=== PATIENT | female | born 1990 | race Caucasian/White ===

== ENCOUNTER 2017-03-10 17:37 | Emergency (ER) | payer BC, MEDICAID ==
--- NOTE | 2017-03-10 18:02 | Emergency Department Record ---
History of Present Illness - General Chief Complaint: Back Pain/Injury Stated Complaint: BACK PAIN Time Seen by Provider: 03/10/17 18:00 Source: Patient Mode of Arrival: Ambulatory Limitations: No limitations - History of Present Illness Initial Comments: The patient is here due to a one week hx of low back pain. She states she was lifting her 11 months old a week ago and noticed pain in her low back. Now Motrin is not helping and the pain is much worse with any movement or lifting. She denies any leg weakness or numbness, but states she does feel intermittent pain radiating to her legs at times. She also denies any bladder or bowel issues. Due to the pain not improving she presented to the ER for treatment. The patient denies any new medical issues, trauma or injury. MD Complaint: Back pain Onset/Timin -: Week(s) Similar Symptoms Previously: No Place: Home Radiation: Left leg, Right leg Severity: Moderate Severity scale (1-10): 7 Quality: Burning Consistency: Constant Improves With: None Worsens With: None Context: While lifting Associated Symptoms: Denies other symptoms Treatments Prior to Arrival: NSAIDS Treatment Prior to Arrival Comment:: Ibuprofen did not help - Related Data Previous Rx's Medication Instructions Recorded Cyclobenzaprine HCl [Flexeril] 10 mg PO TID PRN #20 tablet 03/10/17 Naproxen [Naprosyn] 500 mg PO BID #14 tablet. 03/10/17 Allergies Allergy/AdvReac Type Severity Reaction Status Date / Time No Known Drug Allergies Allergy Verified 03/10/17 17:50 Travel Screening - Travel/Exposure Within Last 30 Days Have you traveled within the last 30 days?: No - Travel/Exposure Within Last Year Have you traveled outside the [place] in the last year?: No - Additonal Travel Details Have you been exposed to anyone with a communicable illness?: No - Travel Symptoms Symptom Screening: None Review of Systems Constitutional: Denies: Chills, Fever Eyes: Denies: Eye discharge ENT: Denies: Congestion Respiratory: Denies: Cough, Dyspnea Past Medical History - SOCIAL HISTORY Smoking Status: Current every day smoker Alcohol Use: Occasional Drug Use: None - RESPIRATORY Hx Respiratory Disorders: No - CARDIOVASCULAR Hx Cardio Disorders: No - NEURO Hx Neuro Disorders: No - GI Hx GI Disorders: No - Hx Genitourinary Disorders: No - ENDOCRINE Hx Endocrine Disorders: No - MUSCULOSKELETAL Hx Musculoskeletal Disorders: No - PSYCH Hx Psych Problems: No - HEMATOLOGY/ONCOLOGY Hx Hematology/Oncology Disorders: No Family Medical History Any Significant Family History?: No Physical Exam - General General Appearance: Alert, Oriented x3, Cooperative, No acute distress - Head Head exam: Atraumatic, Normocephalic, Normal inspection - Eye Eye exam: Normal appearance, PERRL - Neck Neck exam: Normal inspection, Full ROM. negative: Tenderness - Respiratory Respiratory exam: Normal lung sounds bilaterally. negative: Respiratory distress - Cardiovascular Cardiovascular Exam: Regular rate, Normal rhythm, Normal heart sounds - GI/Abdominal GI/Abdominal exam: Soft, Normal bowel sounds. negative: Tenderness - Extremities Extremities exam: Normal inspection, Other (Neg SLR bilaterally.) - Back Back exam: Reports: Normal inspection, Paraspinal tenderness (mild to the bilateral lumbar area. ). Denies: Muscle spasm, Vertebral tenderness - Neurological Neurological exam: Alert, Normal gait, Oriented X3, Reflexes normal. negative: Abnormal gait, Altered, Motor sensory deficit Course Vital Signs 03/10/17 17:51 Temperature 98.3 F Pulse Rate 107 H Respiratory 20 Rate Blood Pressure 125/80 Pulse Ox 97 - Reevaluation(s) Reevaluation #1: The patient is doing better at this time. Her pain is improved and she is up walking with NO difficulty or discomfort. I explained to her the need for F/U with her PCP next week. She is to return to the ER for any worsening symptoms. 03/10/17 18:41 Reevaluation #2: The patient is doing much better at this time. Her burning in her back and legs is gone and she is ready for home. 03/10/17 18:50 Medical Decision Making - Data Complexity MDM Data: Labs Ordered and/or Reviewed (Hcg: Neg.) Disposition Disposition: Discharge Clinical Impression: Lumbar strain Qualifiers: Encounter type: initial encounter Qualified Code(s): S39.012A - Strain of muscle, fascia and tendon of lower back, initial encounter Disposition: Home, Self-Care Condition: (2) Stable Instructions: Low Back Strain (ED) Additional Instructions: Please rest with no heavy lifting at home until improved. Please use the Naprosyn and Flexeril as directed. Follow up with your PCP next week for recheck. Return to the ER for any worsening pain, leg weakness, numbness, or any bowel or bladder issues. Prescriptions: Cyclobenzaprine HCl [Flexeril] 10 mg PO TID PRN #20 tablet PRN Reason: Pain Naproxen [Naprosyn] 500 mg PO BID #14 tablet.dr Forms: Patient Portal Access Time of Disposition: 18:44 Quality - Quality Measures Quality Measures: N/A - Blood Pressure Screening View Details: Yes Does Patient Have Any of the Following: No Blood Pressure Classification: Pre-Hypertensive BP Reading Systolic Measurement: 125 Diastolic Measurement: 80 Screening for High Blood Pressure: < Pre-Hypertensive BP, F/U Documented > [ G8950] Pre-Hypertensive Follow-up Interventions: Referral to alternative/primary care provider.
[2017-03-10] MEDS ORDERED: ORPHENADRINE CITRATE 60MG/2ML VIAL IM ONE (18:21)
[2017-03-10] MEDS ORDERED: KETOROLAC 30 MG/ML VIAL IM ONE (18:21)
== END 2017-03-10 19:10 | disposition home or self-care (01) ==
LOC: ER 17:37
DX: S39.012A Strain of muscle, fascia and tendon of lower back, initial encounter (principal); X50.0XXA Overexertion from strenuous movement or load, initial encounter; Y93.F2 Activity, caregiving, lifting; Y92.009 Unspecified place in unspecified non-institutional (private) residence as the place of occurrence of the external cause
CPT/HCPCS: 99283 ×2; 96372; 81025; J1885; J2360

== ENCOUNTER 2017-03-18 13:38 | Emergency (ER) | payer BC ==
--- NOTE | 2017-03-18 14:02 | Emergency Department Record ---
History of Present Illness - General Chief Complaint: Back Pain/Injury Stated Complaint: BACK PAIN Time Seen by Provider: 03/18/17 13:53 Source: Patient Mode of Arrival: Ambulatory Limitations: No limitations - History of Present Illness Initial Comments: The patient is here due to having low back pain for at least a month. It got worse last week when she lifted up her child. The pain is a sharp aching pain that intermittently radiates to her groin area bilaterally. She denies any leg numbness, weakness, fever, chills, dysuria, or any bowel or bladder issues. Any walking, bending or lifting dramatically increases the pain. The patient was here last week for it and was placed on Naprosyn and Flexeril and now is not better. She has not been able to see her PCP for the issue. MD Complaint: Back pain Onset/Timin -: Month(s) Improves With: None Worsens With: None Context: Unknown Associated Symptoms: Other - Related Data Previous Rx's Medication Instructions Recorded Cyclobenzaprine HCl [Flexeril] 10 mg PO TID PRN #20 tablet 03/10/17 Naproxen [Naprosyn] 500 mg PO BID #14 tablet. 03/10/17 Lidocaine Patch [Lidoderm] 1 ea TOP DAILY #7 patch 03/18/17 Methylprednisolone [Medrol Dose 4 mg PO DAILY #1 tab.ds.pk 03/18/17 Pack] Allergies Allergy/AdvReac Type Severity Reaction Status Date / Time No Known Drug Allergies Allergy Verified 03/18/17 13:53 Travel Screening - Travel/Exposure Within Last 30 Days Have you traveled within the last 30 days?: No - Travel/Exposure Within Last Year Have you traveled outside the [place] in the last year?: No - Additonal Travel Details Have you been exposed to anyone with a communicable illness?: No - Travel Symptoms Symptom Screening: None Review of Systems Constitutional: Denies: Chills, Fever Eyes: Denies: Eye discharge ENT: Denies: Congestion Respiratory: Denies: Cough, Dyspnea, Hemoptysis Past Medical History - SOCIAL HISTORY Smoking Status: Current every day smoker Alcohol Use: None Drug Use: None - RESPIRATORY Hx Respiratory Disorders: No - CARDIOVASCULAR Hx Cardio Disorders: No - NEURO Hx Neuro Disorders: No - GI Hx GI Disorders: No - Hx Genitourinary Disorders: No - ENDOCRINE Hx Endocrine Disorders: No - MUSCULOSKELETAL Hx Musculoskeletal Disorders: No - PSYCH Hx Psych Problems: No - HEMATOLOGY/ONCOLOGY Hx Hematology/Oncology Disorders: No Family Medical History Any Significant Family History?: No Physical Exam - General General Appearance: Alert, Oriented x3, Cooperative, No acute distress - Head Head exam: Atraumatic, Normocephalic, Normal inspection - Eye Eye exam: Normal appearance, PERRL - Neck Neck exam: Normal inspection, Full ROM. negative: Tenderness - Respiratory Respiratory exam: Normal lung sounds bilaterally. negative: Respiratory distress - Cardiovascular Cardiovascular Exam: Regular rate, Normal rhythm, Normal heart sounds - GI/Abdominal GI/Abdominal exam: Soft, Normal bowel sounds. negative: Tenderness - Extremities Extremities exam: Normal inspection, Full ROM, Normal capillary refill, Other ( Neg SLR bilaterally.). negative: Tenderness - Back Back exam: Reports: Normal inspection, Paraspinal tenderness, Vertebral tenderness (mild diffusely over the lumbar spinal and paraspinal areas.). Denies: CVA tenderness (R), CVA tenderness (L) - Neurological Neurological exam: Alert, Normal gait (The patient is able to ambulate with NO signs of any pain or discomfort.), Oriented X3, Reflexes normal (The patella and achilles reflexes are 2+ and equal bilaterally.). negative: Abnormal gait, Altered, Motor sensory deficit Course Vital Signs 03/18/17 13:47 Temperature 97.8 F Pulse Rate 86 Respiratory 16 Rate Blood Pressure 113/71 Pulse Ox 100 - Reevaluation(s) Reevaluation #1: The patient is doing well at this time. She is sitting on the bed texting on the phone and appears very comfortable. I did discuss the normal lab work and urine results with her and have ordered the xrays. 03/18/17 14:47 Reevaluation #2: Again the patient is resting comfortably texting on her phone. I did discuss with her the normal lab tests, UA and xrays. She is to see her PCP next week for recheck. 03/18/17 15:38 Medical Decision Making - Data Complexity MDM Data: Labs Ordered and/or Reviewed, X-Ray Ordered and/or Reviewed - Lab Data Result diagrams: 03/18/17 14:22 03/18/17 14:22 - Radiology Data Radiology results: Report reviewed (Lumbar spine: Neg for any acute changes.) Disposition Disposition: Discharge Clinical Impression: Lumbar strain Qualifiers: Encounter type: subsequent encounter Qualified Code(s): S39.012D - Strain of muscle, fascia and tendon of lower back, subsequent encounter Disposition: Home, Self-Care Condition: (2) Stable Instructions: Low Back Strain (ED) Additional Instructions: Take the Medrol Dose pack and Lidoderm for pain. Please see your PCP next week for recheck. Return to the ER for any worsening symptoms, fever, leg numbness, weakness, or any bowel or bladder incontinence or inability to go. Please take an OTC laxative for constipation. Prescriptions: Lidocaine Patch [Lidoderm] 1 ea TOP DAILY #7 patch Methylprednisolone [Medrol Dose Pack] 4 mg PO DAILY #1 tab.ds.pk Forms: Patient Portal Access Time of Disposition: 15:41 Quality - Quality Measures Quality Measures: N/A - Blood Pressure Screening View Details: Yes Does Patient Have Any of the Following: No Blood Pressure Classification: Normal BP Reading Systolic Measurement: 113 Diastolic Measurement: 71 Screening for High Blood Pressure: < Normal BP, F/U Not Required > [G8783]
[2017-03-18] MEDS ORDERED: ORPHENADRINE CITRATE 60MG/2ML VIAL IM ONE (14:03)
[2017-03-18 14:25] LABS: BASO % 0.4 % (0-6); EOS % 2.4 % (0-6); GRAN % 63.2 % (47-80); HEMATOCRIT 44.8 % (35.0-47.0); HEMOGLOBIN 15.2 gm/dl (11.6-16.0); LYMPH % 24.5 % (16-45); MEAN CELL VOLUME 90.3 fl (81-97); MEAN CORPUSCULAR HEMOGLOBIN 30.6 pg (27-33); MEAN CORPUSCULAR HGB CONC 33.9 g/dl (32-36); MEAN PLATELET VOLUME 9.9 fl (7.4-10.4); MONO % 9.5 % (0-9); PLATELET COUNT 313 K/uL (130-400); RED BLOOD COUNT 4.96 M/uL (3.80-5.40); RED CELL DISTRIBUTION WIDTH 13.4 % (11.5-14.5)
[2017-03-18 14:28] LABS: URINE APPEARANCE CLEAR; URINE BILIRUBIN NEGATIVE (NEGATIVE); URINE BLOOD NEGATIVE (NEGATIVE); URINE COLOR YELLOW; URINE GLUCOSE (UA) NEGATIVE (NEGATIVE); URINE KETONE NEGATIVE (NEGATIVE); URINE LEUKOCYTE ESTERASE NEGATIVE (NEGATIVE); URINE NITRITE NEGATIVE (NEGATIVE); URINE PROTEIN NEGATIVE (NEGATIVE); URINE UROBILINOGEN 0.2 E.U./dL (0.20 - 1.00)
[2017-03-18 14:36] LABS: BLOOD UREA NITROGEN 14 mg/dL (6-20); CREATININE 0.5 mg/dL (0.5-0.9); EST GLOMERULAR FILTRATION RATE > 60 mL/min
[2017-03-18 14:37] LABS: TOTAL PROTEIN 8.2 g/dL (6.6-8.7)
[2017-03-18 14:42] LABS: ALB/GLOB RATIO 1.3 (1.1-1.8); ALBUMIN 4.7 g/dL (4.0-5.0); ALKALINE PHOSPHATASE 85 U/L (35-104); ALT/SGPT 27 U/L (<33); AST/SGOT 19 U/L (10.0-35.0)
[2017-03-18 14:43] LABS: GLUCOSE,RANDOM 86 mg/dL (74-109); HCG,QUALITATIVE URINE NEGATIVE (NEGATIVE)
--- NOTE | 2017-03-19 22:45 | RADIOLOGY REPORT ---
EXAM: LUMBAR SPINE W/OBLIQUES HISTORY: INCREASED BACK PAIN FOR THE PAST MONTH. TECHNIQUE: Five views lumbar spine. COMPARISON: None. FINDINGS: The lumbar intervertebral disc spaces are maintained. No fracture or subluxation identified. No appreciable arthritic change seen. IMPRESSION: THE LUMBAR SPINE APPEARS NEGATIVE. JOB NUMBER: [id number] MTDD
== END 2017-03-18 16:11 | disposition home or self-care (01) ==
LOC: ER 13:38
DX: S39.012A Strain of muscle, fascia and tendon of lower back, initial encounter (principal); X50.0XXA Overexertion from strenuous movement or load, initial encounter
CPT/HCPCS: 72110; 80053; 81003; 81025; 85025; 99283; 99284; J2360

== ENCOUNTER 2017-05-17 20:16 | Emergency (ER) | payer BC, MEDICAID ==
--- NOTE | 2017-05-17 20:31 | Emergency Department Record ---
History of Present Illness - General Chief Complaint: Cough Stated Complaint: COUGH,LOW GRADE TEMP,HASMUKH Time Seen by Provider: 05/17/17 20:26 Source: Patient, Family Mode of Arrival: Ambulatory Limitations: No limitations - History of Present Illness Initial Comments: 26 yo female presents with cough, congestion, phlegm productive, mild sore throat. The onset was yesterday. She does smoke 1-2 cigarettes per day. No nausea, vomiting or diarrhea. No rash. She did not have a flu shot this year. Her child was sick last week with URI/Pneumonia symptoms. No underlying history of lung disease. MD Complaint: Cough, Fever, Nasal congestion, Rhinorrhea, Sore throat Onset/Timin -: Days(s) (2) Quality: Aching Consistency: Constant Improves With: Nothing Worsens With: Nothing Associated Symptoms: Cough, Fever, Nasal congestion, Rhinorrhea - Related Data Previous Rx's Medication Instructions Recorded Azithromycin [Zithromax] 250 mg PO DAILY #4 tab 05/17/17 Allergies Allergy/AdvReac Type Severity Reaction Status Date / Time No Known Drug Allergies Allergy Verified 03/18/17 13:53 Travel Screening - Travel/Exposure Within Last 30 Days Have you traveled within the last 30 days?: No - Travel Symptoms Symptom Screening: None Review of Systems Constitutional: Reports: Chills, Fever, Malaise Eyes: Denies: Eye discharge, Eye pain, Photophobia, Vision change ENT: Reports: Congestion, Throat pain Respiratory: Reports: Cough. Denies: Dyspnea, Hemoptysis, Stridor, Wheezes Cardiovascular: Denies: Chest pain, Dyspnea on exertion, Palpitations, Syncope Endocrine: Denies: Fatigue Gastrointestinal: Denies: Abdominal pain, Diarrhea, Nausea, Vomiting Genitourinary: Denies: Dysuria, Urgency Musculoskeletal: Denies: Arthralgia, Back pain, Joint swelling, Myalgia Skin: Denies: Bruising, Change in color, Rash Neurological: Denies: Headache, Numbness, Weakness Psychiatric: Denies: Anxiety Hematological/Lymphatic: Denies: Blood Clots, Easy bleeding, Easy bruising, Swollen glands Past Medical History - SOCIAL HISTORY Smoking Status: Current every day smoker - RESPIRATORY Hx Respiratory Disorders: No - CARDIOVASCULAR Hx Cardio Disorders: No - NEURO Hx Neuro Disorders: No - GI Hx GI Disorders: No - Hx Genitourinary Disorders: No - ENDOCRINE Hx Endocrine Disorders: No - MUSCULOSKELETAL Hx Musculoskeletal Disorders: No - PSYCH Hx Psych Problems: No - HEMATOLOGY/ONCOLOGY Hx Hematology/Oncology Disorders: No Family Medical History Any Significant Family History?: Yes Hx Diabetes: Grandparents Hx HTN: Grandparents Physical Exam - General General Appearance: Alert, Oriented x3, Cooperative, No acute distress Limitations: No limitations - Head Head exam: Normal inspection - Eye Eye exam: Normal appearance, PERRL. negative: Conjunctival injection, Periorbital swelling, Scleral icterus - ENT ENT exam: Normal exam, Mucous membranes moist Ear exam: Normal external inspection Nasal Exam: Discharge (clear). negative: Normal inspection Mouth exam: Normal external inspection Teeth exam: Normal inspection Throat exam: Tonsillar erythema (mild). negative: Tonsillomegaly, Tonsillar exudate, R peritonsillar mass, L peritonsillar mass - Neck Neck exam: Normal inspection, Full ROM. negative: Lymphadenopathy, Meningismus , Tenderness, Thyromegaly - Respiratory Respiratory exam: Rhonchi (few minimal scattered). negative: Accessory muscle use, Chest wall tenderness, Decreased breath sounds, Prolonged expiratory, Respiratory distress, Wheezes - Cardiovascular Cardiovascular Exam: Normal rhythm, Normal heart sounds, Tachycardia - GI/Abdominal GI/Abdominal exam: Soft. negative: Tenderness - Rectal Rectal exam: Deferred - exam: Deferred - Extremities Extremities exam: Normal inspection - Back Back exam: Reports: Normal inspection. Denies: CVA tenderness (R), CVA tenderness (L) - Neurological Neurological exam: Alert, Normal gait, Oriented X3 - Psychiatric Psychiatric exam: Normal affect, Normal mood. negative: Agitated, Anxious - Skin Skin exam: Dry, Intact, Normal color, Warm Course Vital Signs 05/17/17 20:21 Temperature 98.7 F Pulse Rate [ 121 H Pulse Ox Probe] Respiratory 20 Rate Blood Pressure 111/75 [Left Arm] Pulse Ox 99 - Reevaluation(s) Reevaluation #1: 05/17/17 20:31 Influenza screen sent 05/17/17 22:39 She is well appearing, no distress She was given Zithromax in the ED for her productive cough We discussed reasons for return to the ED and close follow up I encouraged rest and hydration Disposition Disposition: Discharge Clinical Impression: Bronchitis Disposition: Home, Self-Care Condition: (1) Good Instructions: Acute Bronchitis (ED) Additional Instructions: Rest and stay well hydrated Return if worse, vomiting, or any new concerns Prescriptions: Azithromycin [Zithromax] 250 mg PO DAILY #4 tab Forms: Patient Portal Access Time of Disposition: 21:31 Quality - Quality Measures Quality Measures: N/A - Blood Pressure Screening Does Patient Have Any of the Following: No Blood Pressure Classification: Pre-Hypertensive BP Reading Systolic Measurement: 122 Diastolic Measurement: 60 Screening for High Blood Pressure: < Pre-Hypertensive BP, F/U Documented > [ G8950] Pre-Hypertensive Follow-up Interventions: Referral to alternative/primary care provider.
[2017-05-17 20:39] LABS: INFLUENZA A NEGATIVE (NEGATIVE); INFLUENZA B NEGATIVE (NEGATIVE)
[2017-05-17] MEDS ORDERED: AZITHROMYCIN 500 MG TABLET PO ONE (21:10)
== END 2017-05-17 21:37 | disposition home or self-care (01) ==
LOC: ER 20:16
DX: J20.9 Acute bronchitis, unspecified (principal); R05 Cough; F17.210 Nicotine dependence, cigarettes, uncomplicated
CPT/HCPCS: 87400; 99282

== ENCOUNTER 2019-02-10 15:57 | Emergency (ER) | payer BC, MEDICAID ==
--- NOTE | 2019-02-10 16:25 | Emergency Department Record ---
History of Present Illness - General Chief complaint: Female Urogenital Problem Stated complaint: FEMALE UROGENITAL, STD CHECK Time Seen by Provider: 02/10/19 16:15 Source: Patient Mode of Arrival: Ambulatory Limitations: No limitations - History of Present Illness Initial comments: 28 yo female presents with a concern about possible STD exposure. She is currently asymptomatic. She was called by her significant other that "she should get checked". She does not have any other specific information. No fever. No pain. No discharge. No dysuria. -: Unknown Location: Other Radiation: Other (No symptoms) Severity: Mild Quality: Other Consistency: Other Improves with: None Worsens with: None Patient : No LMP Date: 01/21/19 Gestational Age (wks) based on LMP: 2 Associated Symptoms: Denies other symptoms - Related Data Sexually active: Yes : 2 Para: 2 Previous Rx's Medication Instructions Recorded Metronidazole [Flagyl] 500 mg PO BID #14 tablet 02/10/19 Allergies Allergy/AdvReac Type Severity Reaction Status Date / Time No Known Drug Allergies Allergy Verified 02/10/19 16:07 Travel Screening - Travel/Exposure Within Last 30 Days Have you traveled within the last 30 days?: No Review of Systems Constitutional: Denies: Chills, Fever, Malaise, Weakness Eyes: Denies: Eye discharge ENT: Denies: Congestion, Throat pain Respiratory: Denies: Cough Cardiovascular: Denies: Chest pain, Palpitations, Syncope Endocrine: Denies: Fatigue Gastrointestinal: Denies: Abdominal pain, Diarrhea, Nausea, Vomiting Genitourinary: Reports: Discharge (minimal). 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: 2 - RESPIRATORY Hx Respiratory Disorders: No - CARDIOVASCULAR Hx Cardio Disorders: No - NEURO Hx Neuro Disorders: No - GI Hx GI Disorders: No - Hx Genitourinary Disorders: No - ENDOCRINE Hx Endocrine Disorders: No - MUSCULOSKELETAL Hx Musculoskeletal Disorders: No - PSYCH Hx Psych Problems: No - HEMATOLOGY/ONCOLOGY Hx Hematology/Oncology Disorders: No Family Medical History Any Significant Family History?: Yes Hx Diabetes: Grandparents Hx HTN: Grandparents Physical Exam - General General Appearance: Alert, Oriented x3, Cooperative, No acute distress Limitations: No limitations - Head Head exam: Atraumatic, Normal inspection - Eye Eye exam: Normal appearance, PERRL. negative: Conjunctival injection, Scleral icterus - ENT ENT exam: Normal exam Ear exam: Normal external inspection Nasal Exam: Normal inspection Mouth exam: Normal external inspection - Neck Neck exam: Normal inspection - GI/Abdominal GI/Abdominal exam: Soft. negative: Tenderness - Rectal Rectal exam: Deferred - exam: Normal bimanual exam, Vaginal discharge, Vaginal erythema. negative: Abnormal external exam, Adnexal mass (L), Adnexal mass (R), cervical motion tenderness, Vaginal bleeding - Extremities Extremities exam: Normal inspection - Neurological Neurological exam: Alert, Oriented X3 - Psychiatric Psychiatric exam: Normal affect, Normal mood - Skin Skin exam: Dry, Intact, Normal color, Warm Course Vital Signs 02/10/19 16:03 Temperature 98.0 F Pulse Rate 122 H Respiratory 18 Rate Blood Pressure 127/85 Pulse Ox 99 - Reevaluation(s) Reevaluation #1: 02/10/19 16:38 We discussed the options of treatment now vs waiting for the test results Given the discharge she prefers treatment now 02/10/19 Positive clue cells She will be treated for BV as well Disposition Disposition: Discharge Clinical Impression: Bacterial vaginosis Disposition: Home, Self-Care Condition: (1) Good Instructions: Bacterial Vaginosis (ED) Additional Instructions: No unprotected sex until the cultures return No alcohol while on the Flagyl Return of be seen if you have fever, pain, bleeding or any new concerns Prescriptions: Metronidazole [Flagyl] 500 mg PO BID #14 tablet Forms: Patient Portal Access Time of Disposition: 17:08 Quality - Quality Measures Quality Measures: N/A - Blood Pressure Screening Does Patient Have Any of the Following: No Blood Pressure Classification: Pre-Hypertensive BP Reading Systolic Measurement: 127 Diastolic Measurement: 85 Screening for High Blood Pressure: < Pre-Hypertensive BP, F/U Documented > [G8950] Pre-Hypertensive Follow-up Interventions: Referral to alternative/primary care provider.
[2019-02-10] MEDS ORDERED: AZITHROMYCIN 500 MG TABLET PO ONE (16:38)
[2019-02-10] MEDS ORDERED: CEFTRIAXONE 250 MG VIAL IM ONE (16:38)
[2019-02-10 16:52] LABS: URINE APPEARANCE CLEAR; URINE BILIRUBIN NEGATIVE (NEGATIVE); URINE BLOOD TRACE-I (NEGATIVE); URINE COLOR YELLOW; URINE GLUCOSE (UA) NEGATIVE (NEGATIVE); URINE KETONE NEGATIVE (NEGATIVE); URINE LEUKOCYTE ESTERASE NEGATIVE (NEGATIVE); URINE NITRITE NEGATIVE (NEGATIVE); URINE PROTEIN NEGATIVE (NEGATIVE); URINE UROBILINOGEN 0.2 E.U./dL (0.20 - 1.00)
[2019-02-10 16:59] LABS: HCG,QUALITATIVE URINE NEGATIVE (NEGATIVE)
== END 2019-02-10 17:24 | disposition home or self-care (01) ==
LOC: ER 15:57
DX: N76.0 Acute vaginitis (principal); F17.210 Nicotine dependence, cigarettes, uncomplicated
CPT/HCPCS: 99284 ×2; 96372; 81003; 81025; Q0111; J0696; 87210

== ENCOUNTER 2019-03-29 17:52 | Emergency (ER) | payer MEDICAID ==
[2019-03-29] MEDS ORDERED: IBUPROFEN 600 MG TABLET PO ONE (18:32)
--- NOTE | 2019-03-29 18:32 | Emergency Department Record ---
History of Present Illness - General Chief complaint: Extremity Problem Stated complaint: RT THUMB INJURY Time Seen by Provider: 03/29/19 18:13 Source: Patient Mode of Arrival: Ambulatory Limitations: No limitations - History of Present Illness Initial comments: pt smashed her right thumb in the car door last night. it has contd to hurt Complaint: Extremity pain, Extremity swelling Onset/Timin -: Hour(s) Location: Right, Hand History of Same: No Quality: Aching Consistency: Constant Improves with: Elevation Worsens with: Exertion Associated Symptoms: Denies other symptoms - Related Data Home Medications Medication Instructions Recorded Confirmed Last Taken No Home Med [NO HOME MEDS] 03/29/19 03/29/19 Unknown Allergies Allergy/AdvReac Type Severity Reaction Status Date / Time No Known Drug Allergies Allergy Verified 03/29/19 18:15 Travel Screening - Travel/Exposure Within Last 30 Days Have you traveled within the last 30 days?: No - Travel/Exposure Within Last Year Have you traveled outside the [place] in the last year?: No - Additonal Travel Details Have you been exposed to anyone with a communicable illness?: No - Travel Symptoms Symptom Screening: None Review of Systems Reviewed: No additional complaints except as noted below Constitutional: Reports: As per HPI. Denies: Chills, Fever, Malaise, Night sweats, Weakness, Weight change Eyes: Reports: As per HPI. Denies: Eye discharge, Eye pain, Photophobia, Vision change ENT: Reports: As per HPI. Denies: Congestion, Dental pain, Ear pain, Epistaxis, Hearing loss, Throat pain Respiratory: Reports: As per HPI. Denies: Cough, Dyspnea, Hemoptysis, Stridor, Wheezes Cardiovascular: Reports: As per HPI. Denies: Arrhythmia, Chest pain, Dyspnea on exertion, Edema, Murmurs, Orthopnea, Palpitations, Paroxysmal nocturnal dyspnea, Rheumatic Fever, Syncope Endocrine: Reports: As per HPI. Denies: Fatigue, Heat or cold intolerance, Polydipsia, Polyuria Gastrointestinal: Reports: As per HPI. Denies: Abdominal pain, Constipation, Diarrhea, Hematemesis, Hematochezia, Melena, Nausea, Vomiting Genitourinary: Reports: As per HPI. Denies: Abnormal menses, Discharge, Dyspareunia, Dysuria, Frequency, Hematuria, Incontinence, Retention, Urgency Musculoskeletal: Reports: As per HPI. Denies: Arthralgia, Back pain, Gout, Joint swelling, Myalgia, Neck pain Skin: Reports: As per HPI. Denies: Bruising, Change in color, Change in hair/nails, Lesions, Pruritus, Rash Neurological: Reports: As per HPI. Denies: Abnormal gait, Confusion, Headache, Numbness, Paresthesias, Seizure, Tingling, Tremors, Vertigo, Weakness Psychiatric: Reports: As per HPI. Denies: Anxiety, Auditory hallucinations, Depression, Homicidal thoughts, Suicidal thoughts, Visual hallucinations Hematological/Lymphatic: Reports: As per HPI. Denies: Anemia, Blood Clots, Easy bleeding, Easy bruising, Swollen glands Past Medical History - SOCIAL HISTORY Smoking Status: Current every day smoker Alcohol Use: None Drug Use: None - RESPIRATORY Hx Respiratory Disorders: No - CARDIOVASCULAR Hx Cardio Disorders: No - NEURO Hx Neuro Disorders: No - GI Hx GI Disorders: No - Hx Genitourinary Disorders: No - ENDOCRINE Hx Endocrine Disorders: No - MUSCULOSKELETAL Hx Musculoskeletal Disorders: No - PSYCH Hx Psych Problems: No - HEMATOLOGY/ONCOLOGY Hx Hematology/Oncology Disorders: No Family Medical History Any Significant Family History?: Yes Hx Diabetes: Grandparents Hx HTN: Grandparents Physical Exam - General General Appearance: Alert, Oriented x3, Cooperative, No acute distress - Head Head exam: Normal inspection - Eye Eye exam: Normal appearance, PERRL, EOMI Pupils: Normal accommodation - ENT ENT exam: Normal exam, Mucous membranes moist, Normal external ear exam, Normal orophraynx Ear exam: Normal external inspection. negative: External canal tenderness Nasal Exam: Normal inspection. negative: Discharge, Sinus tenderness Mouth exam: Normal external inspection, Tongue normal Teeth exam: Normal inspection. negative: Dental caries Throat exam: Normal inspection. negative: Tonsillar erythema, Tonsillar exudate - Neck Neck exam: Normal inspection, Full ROM. negative: Tenderness - Respiratory Respiratory exam: Normal lung sounds bilaterally. negative: Respiratory distress - Cardiovascular Cardiovascular Exam: Regular rate, Normal rhythm, Normal heart sounds - GI/Abdominal GI/Abdominal exam: Soft, Normal bowel sounds. negative: Tenderness - Rectal Rectal exam: Deferred - exam: Deferred - Extremities Extremities exam: Full ROM, Normal capillary refill, Tenderness Image of Finger Tip: 1 - erythema 2 - subungual hematoma - Back Back exam: Reports: Normal inspection, Full ROM. Denies: Muscle spasm, Rash noted, Tenderness - Neurological Neurological exam: Alert, CN II-XII intact, Normal gait, Oriented X3 - Psychiatric Psychiatric exam: Normal affect, Normal mood - Skin Skin exam: Dry, Intact, Normal color, Warm Course Vital Signs 03/29/19 18:16 Temperature 98.2 F Pulse Rate 79 Respiratory 18 Rate Blood Pressure 110/73 Pulse Ox 98 Disposition Disposition: Discharge Clinical Impression: Subungual hematoma of right thumb Qualifiers: Encounter type: initial encounter Qualified Code(s): S60.111A - Contusion of right thumb with damage to nail, initial encounter Contusion Qualifiers: Encounter type: initial encounter Contusion area: finger Finger: thumb Damage to nail status: with damage Laterality: right Qualified Code(s): S60.111A - Contusion of right thumb with damage to nail, initial encounter Disposition: Home, Self-Care Condition: (1) Good Instructions: Subungual Hematoma (ED), Contusion in Adults (ED) Additional Instructions: follow up with family doctor. return sooner if worse. ice and elevation. motrin for pain Forms: Patient Portal Access Quality - Quality Measures Quality Measures: N/A - Blood Pressure Screening Does Patient Have Any of the Following: No Blood Pressure Classification: Normal BP Reading Systolic Measurement: 110 Diastolic Measurement: 73 Screening for High Blood Pressure: < Normal BP, F/U Not Required > [G8783]
--- NOTE | 2019-03-29 18:38 | RADIOLOGY REPORT ---
EXAMINATION: Right Thumb, Minimum Two Views EXAM DATE: 03/29/2019 6:25 PM TECHNIQUE: PA, lateral, and oblique views INDICATION: injury COMPARISON: None ENCOUNTER: Initial FINDINGS: There is no bone or joint abnormality. No fracture or dislocation identified. Soft tissue swelling pr esent IMPRESSION: 1. Soft tissue swelling without fracture identified. - Follow-up is recommended if pain persists. Dictated by: BEN RING MD on 03/29/2019 6:36 PM. .
== END 2019-03-29 18:57 | disposition home or self-care (01) ==
LOC: ER 17:52
DX: S60.111A Contusion of right thumb with damage to nail, initial encounter (principal); W22.8XXA Striking against or struck by other objects, initial encounter; F17.210 Nicotine dependence, cigarettes, uncomplicated
CPT/HCPCS: 99283